=== PATIENT | female | born 1990 | race Hispanic/Latino ===

== ENCOUNTER 2024-06-17 17:21 | Emergency (ER) | payer BC, SELFPAY ==
[2024-06-17 17:25] VITALS: BP 134/79
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
== END 2024-06-17 21:39 | disposition home or self-care (01) ==
LOC: EMR 17:21
PROVIDERS: EMERGENCY PHYSICIAN Emergency Medicine; FAMILY PHYSICIAN Physician Assistant
DX: F41.9 Anxiety disorder, unspecified (principal); Z59.01 Sheltered homelessness
CPT/HCPCS: 99282